=== PATIENT | female | born 1995 | race Caucasian/White ===

== ENCOUNTER 2017-06-22 08:58 | Inpatient (IN) | payer BC, OTHER ==
[2017-06-22] MEDS ORDERED: Carboprost Tromethamine 250 MCG/1 ML Amp IM PRN (09:11)
[2017-06-22] MEDS ORDERED: Lidocaine 1% 50 ML MDV INJECT PRN (09:11)
[2017-06-22] MEDS ORDERED: Sodium Chloride 0.9% 10 ML Syringe FLUSH PRN (09:11)
[2017-06-22] MEDS ORDERED: Butorphanol 1 MG/ML SDV IVPUSH PRN (09:11)
[2017-06-22] MEDS ORDERED: Misoprostol 200 MCG Tab PO PRN (09:11)
[2017-06-22] MEDS ORDERED: Sodium Chloride 0.9% 2.5 ML Syringe FLUSH PRN (09:11)
[2017-06-22] MEDS ORDERED: Methylergonovine 0.2 MG/1 ML Amp IM PRN ×2 (09:11→21:41)
[2017-06-22] MEDS ORDERED: Water For Irrigation,Sterile 1,000 ML Container IRR PRN (09:11)
[2017-06-22] MEDS ORDERED: Terbutaline 1 MG/ML SDV SUBCUT PRN (09:13)
[2017-06-22] MEDS ORDERED: Oxytocin/0.9 % Sodium Chloride 30 UNIT/500 ML BAG IV SCH ×2 (09:15)
[2017-06-22] MEDS: Lactated Ringers 1,000 ML IV SCH ×3 (09:24→14:36)
[2017-06-22] MEDS ORDERED: Ampicillin 1 GM in Sodium Chloride 0.9% 50 ML IV SCH (09:30)
[2017-06-22] MEDS ORDERED: Ampicillin 2 GM in Sodium Chloride 0.9% 100 ML IV ONE (09:30)
[2017-06-22] MEDS ORDERED: fentaNYL 100 MCG/2 ML SDV ONE (13:06)
[2017-06-22] MEDS ORDERED: Ropivacaine 100 ML ONE (13:06)
--- NOTE | 2017-06-22 13:35 | PCM.PREANE ---
Preanesthetic Assessment - Procedure Proposed Procedure: Labor Epidural - Anesthesia/Transfusion/Family Hx Anesthesia History: No Prior Anesthesia Family History of Anesthesia Reaction: No Transfusion History: No Prior Transfusion(s) - Review of Systems General: No Symptoms Pulmonary: No Symptoms Cardiovascular: No Symptoms Gastrointestinal: No Symptoms Neurological: No Symptoms Other: Reports: None - Physical Assessment NPO Status Date: 06/22/17 NPO Status Time: 13:33 (sips/chips) Height: 5 ft 6 in Weight: 215 lb ASA Class: 2 Mental Status: Alert & Oriented x3 Airway Class: Mallampati = 2 Dentition: Reports: Normal Dentition Thyro-Mental Finger Breadths: 3 Mouth Opening Finger Breadths: 3 ROM/Head Extension: Full Lungs: Clear to Auscultation, Normal Respiratory Effort Cardiovascular: Regular Rate, Regular Rhythm - Lab Values: Laboratory Last Values WBC 12.27 K/uL (4.0-11.0) H 06/22/17 09:24 RBC 4.44 M/uL (4.30-5.90) 06/22/17 09:24 Hgb 12.6 g/dL (12.0-16.0) 06/22/17 09:24 Hct 37.9 % (36.0-46.0) 06/22/17 09:24 MCV 85.4 fL (80.0-98.0) 06/22/17 09:24 MCH 28.4 pg (27.0-32.0) 06/22/17 09:24 MCHC 33.2 g/dL (31.0-37.0) 06/22/17 09:24 RDW Std Deviation 40.1 fl (28.0-62.0) 06/22/17 09:24 RDW Coeff of Kelly 13 % (11.0-15.0) 06/22/17 09:24 Plt Count 190 K/uL (150-400) 06/22/17 09:24 MPV 11.10 fL (7.40-12.00) 06/22/17 09:24 Nucleated RBC % 0.0 /100WBC 06/22/17 09:24 Nucleated RBCs # 0 K/uL 06/22/17 09:24 Blood Type O POSITIVE 06/22/17 09:30 Antibody Screen NEGATIVE 06/22/17 09:30 - Allergies Allergies/Adverse Reactions: Allergies Allergy/AdvReac Type Severity Reaction Status Date / Time No Known Allergies Allergy Verified 06/22/17 09:11 - Blood Blood Available: No Product(s) Available: None - Anesthesia Plan Free Text/Narrative:: Labor Epidural - Acknowledgements Anesthesia Type Planned: Epidural Pt an Appropriate Candidate for the Planned Anesthesia: Yes Alternatives and Risks of Anesthesia Discussed w Pt/Guardian: Yes Pt/Guardian Understands and Agrees with Anesthesia Plan: Yes PreAnesthesia Questionnaire Respiratory History: Reports: Asthma (pt states "slight") Gastrointestinal History: Reports: GERD (Significant Reflux with ), Other (See Below) (Hyperemesis thru 7 months - states she lost over 40 lbs) 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: , Spontaneous Psychiatric History: Reports: Anxiety, Bipolar, Depression - SUBSTANCE USE Smoking Status *Q: Former Smoker Second Hand Smoke Exposure: No - CURRENT (IN HOUSE) MEDS Current Meds: Current Medications Butorphanol Tartrate (Stadol) 1 mg IVPUSH Q1H PRN PRN Reason: Pain Carboprost Tromethamine (Hemabate Ds) 250 mcg IM ASDIRECTED PRN PRN Reason: Post Hemorrhage Lactated Ringer's (Ringers, Lactated) 1,000 mls @ 150 mls/hr IV ASDIRECTED SHARA Last Admin: 06/22/17 13:13 Dose: 999 mls/hr Oxytocin/Sodium Chloride (Oxytocin 30 Unit/500 Ml-Ns) 30 unit in 500 mls @ 999 mls/hr IV TITRATE SHARA Oxytocin/Sodium Chloride (Oxytocin 30 Unit/500 Ml-Ns) 30 unit in 500 mls @ 2 mls/hr IV TITRATE SHARA; 2 MUNITS/MIN PRN Reason: Protocol Last Titration: 06/22/17 12:57 Dose: 4 munits/min, 4 mls/hr Ampicillin Sodium 1 gm/ Sodium (Chloride) 50 mls @ 100 mls/hr IV Q4H SHARA Lidocaine HCl (Xylocaine 1%) 50 ml INJECT .ONCE PRN PRN Reason: Laceration repair Methylergonovine Maleate (Methergine) 0.2 mg IM ASDIRECTED PRN PRN Reason: Post Hemorrhage Misoprostol (Cytotec) 200 mcg PO .ONCE PRN PRN Reason: Post Hemorrhage Sodium Chloride (Saline Flush) 10 ml FLUSH ASDIRECTED PRN PRN Reason: Keep Vein Open Sodium Chloride (Saline Flush) 2.5 ml FLUSH ASDIRECTED PRN PRN Reason: Keep Vein Open Sterile Water (Sterile Water For Irrigation) 1,000 ml IRR ASDIRECTED PRN PRN Reason: delivery Terbutaline Sulfate (Brethine) 0.25 mg SUBCUT ASDIRECTED PRN PRN Reason: Tacysystole Discontinued Medications Fentanyl (Sublimaze) Confirm Administered Dose 100 mcg .ROUTE .STK-MED ONE Stop: 06/22/17 13:07 Ampicillin Sodium 1 gm/ Sodium (Chloride) 50 mls @ 100 mls/hr IV Q4H SHARA Ampicillin Sodium 2 gm/ Sodium (Chloride) 100 mls @ 200 mls/hr IV ONETIME ONE Stop: 06/22/17 09:59 Last Admin: 06/22/17 09:36 Dose: 200 mls/hr Ropivacaine (Naropin 0.2%) Confirm Administered Dose 100 mls @ as directed .ROUTE .STK-MED ONE Stop: 06/22/17 13:07
[2017-06-22] MEDS: Ampicillin 1 GM in Sodium Chloride 0.9% 50 ML IV SCH ×2 (13:40→17:57)
[2017-06-22] MEDS ORDERED: Oxytocin 10 Units/1 ML SDV ONE (21:32)
[2017-06-22] MEDS ORDERED: Ibuprofen 400 MG Tab PO PRN (21:41)
[2017-06-22] MEDS ORDERED: Docusate Sodium 100 MG Cap PO PRN (21:41)
[2017-06-22] MEDS ORDERED: Bisacodyl 10 MG Supp RECTAL PRN (21:41)
[2017-06-22] MEDS ORDERED: Benzocaine/Menthol 20%-0.5% Spray 78 GM Cannister TOP PRN (21:41)
[2017-06-22] MEDS ORDERED: Lanolin 100% Cream 7 GM Tube TOP PRN (21:41)
[2017-06-22] MEDS ORDERED: Witch Hazel Medicated Pads 40/Jar TOP PRN (21:41)
[2017-06-22] MEDS ORDERED: Acetaminophen 500 MG Tab ONE (21:44)
[2017-06-23] MEDS: Ibuprofen 800 MG Tab PO PRN ×3 (01:39→21:05)
[2017-06-23] MEDS: oxyCODONE 5 MG Tab PO PRN ×2 (03:52→10:25)
[2017-06-23] MEDS: Acetaminophen 500 MG Tab PO PRN ×2 (03:53→10:26)
--- NOTE | 2017-06-23 08:50 | PCM48HPAN ---
Post Anesthesia Note - EVALUATION WITHIN 48HRS OF ANESTHETIC Vital Signs in Normal Range: Yes Patient Participated in Evaluation: Yes Respiratory Function Stable: Yes Airway Patent: Yes Cardiovascular Function Stable: Yes Hydration Status Stable: Yes Pain Control Satisfactory: Yes Nausea and Vomiting Control Satisfactory: Yes Mental Status Recovered: Yes
--- NOTE | 2017-06-23 11:08 | PCM.PNPP ---
- General Info Date of Service: 06/23/17 Functional Status: Reports: Pain Controlled, Tolerating Diet, Ambulating, Urinating - Review of Systems General: Denies: Fever, Weakness Pulmonary: Denies: Shortness of Breath Cardiovascular: Denies: Chest Pain, Palpitations, Lightheadedness Gastrointestinal: Denies: Abdominal Pain, Nausea, Vomiting Genitourinary: Denies: Flank Pain Neurological: Reports: No Symptoms Psychiatric: Reports: No Symptoms - General Info Date of Service: 06/23/17 - Patient Data Vital Signs - Most Recent: Last Vital Signs Temp 36.2 C 06/23/17 08:00 Pulse 82 06/23/17 08:00 Resp 18 06/23/17 08:00 BP 113/77 06/23/17 08:00 Pulse Ox 98 06/23/17 08:00 Weight - Most Recent: 97.522 kg Lab Results - Last 24 Hours: Laboratory Results - last 24 hr 06/23/17 Range/Units 05:56 Hgb 10.6 L (12.0-16.0) g/dL Hct 31.6 L (36.0-46.0) % Med Orders - Current: Current Medications Acetaminophen (Tylenol Extra Strength) 500 mg PO Q4H PRN PRN Reason: Pain Last Admin: 06/23/17 10:26 Dose: 500 mg Acetaminophen (Tylenol Extra Strength) 1,000 mg PO Q4H PRN PRN Reason: Pain Benzocaine/Menthol (Dermoplast Pain Relief 20%-0.5% [place]) 0 gm TOP ASDIRECTED PRN PRN Reason: Perineal Comfort Measure Last Admin: 06/23/17 00:07 Dose: 1 applic Bisacodyl (Dulcolax) 10 mg RECTAL .ONCE PRN PRN Reason: Constipation Docusate Sodium (Colace) 100 mg PO BID PRN PRN Reason: Constipation Last Admin: 06/23/17 09:51 Dose: 100 mg Emollient Ointment (Lansinoh Hpa) 0 gm TOP ASDIRECTED PRN PRN Reason: Sore Nipples Last Admin: 06/23/17 00:07 Dose: 1 applic Ibuprofen (Motrin) 400 mg PO Q4H PRN PRN Reason: Pain Ibuprofen (Motrin) 800 mg PO Q6H PRN PRN Reason: Pain Last Admin: 06/23/17 08:09 Dose: 800 mg Measles/Mumps/Rubella Vaccine Live (M-M-R Ii Vaccine) 0.5 ml SUBCUT .ONCE ONE Stop: 06/24/17 05:01 Methylergonovine Maleate (Methergine) 0.2 mg IM .ONCE PRN PRN Reason: Excessive Vaginal Bleeding Oxycodone HCl (Oxycodone) 5 mg PO Q2H PRN PRN Reason: Pain Last Admin: 06/23/17 10:25 Dose: 5 mg Witch Malika (Tucks) 1 pad TOP ASDIRECTED PRN PRN Reason: comfort care Last Admin: 06/23/17 00:06 Dose: 1 applic Discontinued Medications Acetaminophen (Tylenol Extra Strength) Confirm Administered Dose 1,000 mg .ROUTE .STK-MED ONE Stop: 06/22/17 21:45 Last Admin: 06/22/17 21:49 Dose: 1,000 mg Butorphanol Tartrate (Stadol) 1 mg IVPUSH Q1H PRN PRN Reason: Pain Carboprost Tromethamine (Hemabate Ds) 250 mcg IM ASDIRECTED PRN PRN Reason: Post Hemorrhage Fentanyl (Sublimaze) Confirm Administered Dose 100 mcg .ROUTE .STK-MED ONE Stop: 06/22/17 13:07 Ampicillin Sodium 1 gm/ Sodium (Chloride) 50 mls @ 100 mls/hr IV Q4H SHARA Ampicillin Sodium 2 gm/ Sodium (Chloride) 100 mls @ 200 mls/hr IV ONETIME ONE Stop: 06/22/17 09:59 Last Admin: 06/22/17 09:36 Dose: 200 mls/hr Lactated Ringer's (Ringers, Lactated) 1,000 mls @ 150 mls/hr IV ASDIRECTED SHARA Last Admin: 06/22/17 14:36 Dose: 150 mls/hr Oxytocin/Sodium Chloride (Oxytocin 30 Unit/500 Ml-Ns) 30 unit in 500 mls @ 999 mls/hr IV TITRATE SHARA Oxytocin/Sodium Chloride (Oxytocin 30 Unit/500 Ml-Ns) 30 unit in 500 mls @ 2 mls/hr IV TITRATE SHARA; 2 MUNITS/MIN PRN Reason: Protocol Last Titration: 06/22/17 20:10 Dose: 6 munits/min, 6 mls/hr Ampicillin Sodium 1 gm/ Sodium (Chloride) 50 mls @ 100 mls/hr IV Q4H SHARA Last Admin: 06/22/17 17:57 Dose: 100 mls/hr Ropivacaine (Naropin 0.2%) Confirm Administered Dose 100 mls @ as directed .ROUTE .Dispop ONE Stop: 06/22/17 13:07 Lidocaine HCl (Xylocaine 1%) 50 ml INJECT .ONCE PRN PRN Reason: Laceration repair Methylergonovine Maleate (Methergine) 0.2 mg IM ASDIRECTED PRN PRN Reason: Post Hemorrhage Misoprostol (Cytotec) 200 mcg PO .ONCE PRN PRN Reason: Post Hemorrhage Oxytocin (Pitocin) Confirm Administered Dose 10 unit .ROUTE .Dispop ONE Stop: 06/22/17 21:33 Last Admin: 06/22/17 21:53 Dose: 10 unit Sodium Chloride (Saline Flush) 10 ml FLUSH ASDIRECTED PRN PRN Reason: Keep Vein Open Sodium Chloride (Saline Flush) 2.5 ml FLUSH ASDIRECTED PRN PRN Reason: Keep Vein Open Sterile Water (Sterile Water For Irrigation) 1,000 ml IRR ASDIRECTED PRN PRN Reason: delivery Last Admin: 06/22/17 21:52 Dose: 1,000 ml Terbutaline Sulfate (Brethine) 0.25 mg SUBCUT ASDIRECTED PRN PRN Reason: Tacysystole - Infant Interaction Disposition, : in Room with Family Interaction: Holding Infant Infant Feeding: Breastfed Infant; Nursed Well Support Person: - Recovery Exam Fundal Tone: Firm Fundal Level: 1 Fingerbreadths Below Umbilicus Fundal Placement: Midline Lochia Amount: Small Lochia Color: Rubra/Red Perineum Description: Intact, Minimal Bruising/Swelling Episiotomy/Laceration: None Bladder Status: Nonpalpable, Voiding Urinary Elimination: Voided - Exam General: Alert, Oriented Lungs: Normal Respiratory Effort Cardiovascular: Regular Rate, Regular Rhythm GI/Abdominal Exam: Normal Bowel Sounds, Soft, No Distention Extremities: Pedal Edema (trace). No: Unique's Sign Skin: Warm, Dry Psy/Mental Status: Alert, Normal Affect - Problem List & Annotations (1) Vaginal delivery SNOMED Code(s): 201939127 Code(s): O80 - ENCOUNTER FOR FULL-TERM UNCOMPLICATED DELIVERY Status: Acute Current Visit: Yes - Problem List Review Problem List Initiated/Reviewed/Updated: Yes - Assessment Assessment:: PPD 1 status post - Plan Plan:: Continue cares, stable overall.
[2017-06-24] MEDS: oxyCODONE 5 MG Tab PO PRN (01:06)
[2017-06-24] MEDS: Acetaminophen 500 MG Tab PO PRN ×2 (01:32→07:06)
[2017-06-24] MEDS ORDERED: Measles, Mumps & Rubella Vaccine 0.5 ML SDV SUBCUT ONE (05:00)
--- NOTE | 2017-06-24 09:01 | PCM.PNPP ---
- General Info Date of Service: 06/24/17 Functional Status: Reports: Pain Controlled, Tolerating Diet, Ambulating, Urinating - Review of Systems General: Denies: Fever, Weakness Pulmonary: Denies: Shortness of Breath Cardiovascular: Denies: Chest Pain, Palpitations, Lightheadedness Gastrointestinal: Denies: Abdominal Pain Genitourinary: Denies: Flank Pain Neurological: Reports: No Symptoms Psychiatric: Reports: No Symptoms - General Info Date of Service: 06/24/17 - Patient Data Vital Signs - Most Recent: Last Vital Signs Temp 36.7 C 06/23/17 21:50 Pulse 68 06/23/17 21:50 Resp 18 06/23/17 21:50 BP 117/59 L 06/23/17 21:50 Pulse Ox 97 06/23/17 21:50 Weight - Most Recent: 97.522 kg Med Orders - Current: Current Medications Acetaminophen (Tylenol Extra Strength) 500 mg PO Q4H PRN PRN Reason: Pain Last Admin: 06/23/17 10:26 Dose: 500 mg Acetaminophen (Tylenol Extra Strength) 1,000 mg PO Q4H PRN PRN Reason: Pain Last Admin: 06/24/17 07:06 Dose: 1,000 mg Benzocaine/Menthol (Dermoplast Pain Relief 20%-0.5% [place]) 0 gm TOP ASDIRECTED PRN PRN Reason: Perineal Comfort Measure Last Admin: 06/23/17 00:07 Dose: 1 applic Bisacodyl (Dulcolax) 10 mg RECTAL .ONCE PRN PRN Reason: Constipation Docusate Sodium (Colace) 100 mg PO BID PRN PRN Reason: Constipation Last Admin: 06/23/17 09:51 Dose: 100 mg Emollient Ointment (Lansinoh Hpa) 0 gm TOP ASDIRECTED PRN PRN Reason: Sore Nipples Last Admin: 06/23/17 00:07 Dose: 1 applic Ibuprofen (Motrin) 400 mg PO Q4H PRN PRN Reason: Pain Ibuprofen (Motrin) 800 mg PO Q6H PRN PRN Reason: Pain Last Admin: 06/23/17 21:05 Dose: 800 mg Methylergonovine Maleate (Methergine) 0.2 mg IM .ONCE PRN PRN Reason: Excessive Vaginal Bleeding Oxycodone HCl (Oxycodone) 5 mg PO Q2H PRN PRN Reason: Pain Last Admin: 06/24/17 01:06 Dose: 5 mg Witch Malika (Tucks) 1 pad TOP ASDIRECTED PRN PRN Reason: comfort care Last Admin: 06/23/17 00:06 Dose: 1 applic Discontinued Medications Acetaminophen (Tylenol Extra Strength) Confirm Administered Dose 1,000 mg .ROUTE .STK-MED ONE Stop: 06/22/17 21:45 Last Admin: 06/22/17 21:49 Dose: 1,000 mg Butorphanol Tartrate (Stadol) 1 mg IVPUSH Q1H PRN PRN Reason: Pain Carboprost Tromethamine (Hemabate Ds) 250 mcg IM ASDIRECTED PRN PRN Reason: Post Hemorrhage Fentanyl (Sublimaze) Confirm Administered Dose 100 mcg .ROUTE .STK-MED ONE Stop: 06/22/17 13:07 Ampicillin Sodium 1 gm/ Sodium (Chloride) 50 mls @ 100 mls/hr IV Q4H SHARA Ampicillin Sodium 2 gm/ Sodium (Chloride) 100 mls @ 200 mls/hr IV ONETIME ONE Stop: 06/22/17 09:59 Last Admin: 06/22/17 09:36 Dose: 200 mls/hr Lactated Ringer's (Ringers, Lactated) 1,000 mls @ 150 mls/hr IV ASDIRECTED SHARA Last Admin: 06/22/17 14:36 Dose: 150 mls/hr Oxytocin/Sodium Chloride (Oxytocin 30 Unit/500 Ml-Ns) 30 unit in 500 mls @ 999 mls/hr IV TITRATE SHARA Oxytocin/Sodium Chloride (Oxytocin 30 Unit/500 Ml-Ns) 30 unit in 500 mls @ 2 mls/hr IV TITRATE SHARA; 2 MUNITS/MIN PRN Reason: Protocol Last Titration: 06/22/17 20:10 Dose: 6 munits/min, 6 mls/hr Ampicillin Sodium 1 gm/ Sodium (Chloride) 50 mls @ 100 mls/hr IV Q4H SHARA Last Admin: 06/22/17 17:57 Dose: 100 mls/hr Ropivacaine (Naropin 0.2%) Confirm Administered Dose 100 mls @ as directed .ROUTE .STK-MED ONE Stop: 06/22/17 13:07 Lidocaine HCl (Xylocaine 1%) 50 ml INJECT .ONCE PRN PRN Reason: Laceration repair Measles/Mumps/Rubella Vaccine Live (M-M-R Ii Vaccine) 0.5 ml SUBCUT .ONCE ONE Stop: 06/24/17 05:01 Methylergonovine Maleate (Methergine) 0.2 mg IM ASDIRECTED PRN PRN Reason: Post Hemorrhage Misoprostol (Cytotec) 200 mcg PO .ONCE PRN PRN Reason: Post Hemorrhage Oxytocin (Pitocin) Confirm Administered Dose 10 unit .ROUTE .STK-MED ONE Stop: 06/22/17 21:33 Last Admin: 06/22/17 21:53 Dose: 10 unit Sodium Chloride (Saline Flush) 10 ml FLUSH ASDIRECTED PRN PRN Reason: Keep Vein Open Sodium Chloride (Saline Flush) 2.5 ml FLUSH ASDIRECTED PRN PRN Reason: Keep Vein Open Sterile Water (Sterile Water For Irrigation) 1,000 ml IRR ASDIRECTED PRN PRN Reason: delivery Last Admin: 06/22/17 21:52 Dose: 1,000 ml Terbutaline Sulfate (Brethine) 0.25 mg SUBCUT ASDIRECTED PRN PRN Reason: Tacysystole - Interaction Disposition, : in Room with Family Infant Interaction: Holding Infant Feeding: Breastfed ; Nursed Well Support Person: - Recovery Exam Fundal Tone: Firm Fundal Level: 1 Fingerbreadths Below Umbilicus Fundal Placement: Midline Lochia Amount: Scant Lochia Color: Rubra/Red Perineum Description: Intact, Minimal Bruising/Swelling Episiotomy/Laceration: None Bladder Status: Voiding Urinary Elimination: Voided - Exam General: Alert, Oriented Lungs: Normal Respiratory Effort Cardiovascular: Regular Rate, Regular Rhythm GI/Abdominal Exam: Normal Bowel Sounds, Soft, No Distention Extremities: No: Unique's Sign Skin: Warm, Dry, Intact Psy/Mental Status: Alert, Normal Affect - Problem List & Annotations (1) Vaginal delivery SNOMED Code(s): 817585394 Code(s): O80 - ENCOUNTER FOR FULL-TERM UNCOMPLICATED DELIVERY Status: Acute Current Visit: Yes - Problem List Review Problem List Initiated/Reviewed/Updated: Yes - My Orders Last 24 Hours: My Active Orders 06/24/17 08:59 Ready for Discharge [RC] PER UNIT ROUTINE - Assessment Assessment:: PPD 2 status post - Plan Plan:: patient is ready to go home. Discharge instructions reviewed. Follow up at [facility] 6 weeks. Infection and bleeding warnings reviewed.
--- NOTE | 2017-06-24 12:21 | OR ---
SURGEON: Nancy Dorsey M.D. DATE OF PROCEDURE: 06/22/2017 PREOPERATIVE DIAGNOSES: A 41 and 2/7 weeks' intrauterine , post-dates induction of labor, group B strep positive. POSTOPERATIVE DIAGNOSES: A 41 and 2/7 weeks' intrauterine , post-dates induction of labor, group B strep positive. PROCEDURE: Pitocin induction of labor, group B strep prophylaxis, term spontaneous vaginal delivery. ANESTHESIA: Epidural. ESTIMATED BLOOD LOSS: Less than 300 mL. FINDINGS: Live born male, score 8 and 9. Weighing 4170 grams. Placenta was delivered spontaneously, Schultze, intact with 3 vessels. Upon inspection the pelvis and perineum, there were no periurethral, vaginal sidewall, cervical, rectal, or perineal lacerations. COMPLICATIONS: None known. DISPOSITION: Mother and baby are in LDRP in good condition. BRIEF HISTORY: This is a 21-year-old female, she is G2, P0-0-1-0, who presents at 41 and 2/7 weeks' gestation for induction of labor. She was initially 4 cm dilated. She received ampicillin for group B Strep prophylaxis. After her second dose of ampicillin, she had artificial rupture of membranes. At that time, she was 7 cm dilated. She had category 1 heart tones with episodes of category 2 throughout labor. She progressed to complete. DESCRIPTION OF PROCEDURE: With the patient in dorsolithotomy position, under adequate epidural analgesia, the patient pushed over a 1-1/2 hour time period to a 5+ station, at which time the head was delivered spontaneously and atraumatically over the perineum with support with subsequent delivery of the 's shoulders and then body without any difficulty. The was bulb suctioned by nose and mouth, and the infant was handed to the mother in the presence of the nurse attending delivery. The infant was a liveborn male, score 8 and 9, weighing 4170 grams. After the cord had ceased to pulsate, it was doubly clamped and cut. Cord blood was collected for cord ABGs, as well as routine cord blood sampling. Pitocin was not initiated by IV because the IV had come out, but was given 10 units IM, and the placenta had delivered spontaneously, Schultze, intact with 3 vessels. Upon inspection of the pelvis and perineum, there were no periurethral, vaginal sidewall, cervical, rectal, or perineal lacerations. EBL was less than 300 mL. There were no complications. Mother and baby are in LDRP in good condition. HUMBERTO DELATORRE /[id number]
== END 2017-06-24 11:15 | disposition home or self-care (01) | DRG 560 ==
LOC: MW.OBCHECK 08:58 → MW.OB 08:59 → MW.OBCHECK 09:11 → MW.OB 09:26 → OBSVTOIN 21:28 → MW.OB 06-23 01:35
PROVIDERS: ADMIT Obstetrics & Gynecology; ATTEND Obstetrics & Gynecology
PROC: 10E0XZZ Delivery of Products of Conception, External Approach (ICD-10-PCS; principal; 2017-06-22)
PROC: 3E033VJ Introduction of Other Hormone into Peripheral Vein, Percutaneous Approach (ICD-10-PCS; 2017-06-22)
DX: O48.0 Post-term pregnancy (principal); O99.824 Streptococcus B carrier state complicating childbirth; Z3A.41 41 weeks gestation of pregnancy; Z37.0 Single live birth
CPT/HCPCS: 36415; 51702; 59025; 59409; 85014; 85018; 85027; 86850; 86900; 86901; 90471; 90707; A9270-GY; J0290; J2590; J7030; J7050; J7120

== ENCOUNTER 2021-05-24 11:07 | Emergency (ER) | payer BC ==
[2021-05-24] MEDS ORDERED: Sodium Chloride 0.9% 2.5 ML Syringe FLUSH PRN (11:19)
[2021-05-24] MEDS ORDERED: Sodium Chloride 0.9% 10 ML Syringe FLUSH PRN (11:19)
[2021-05-24] MEDS ORDERED: Ketorolac 30 MG/ML SDV IVPUSH ONE (11:20)
--- NOTE | 2021-05-24 11:24 | EDM.PDOC ---
ED HPI GENERAL MEDICAL PROBLEM - General Chief Complaint: Respiratory Problem Stated Complaint: SORE THROAT Time Seen by Provider: 05/24/21 11:10 - History of Present Illness INITIAL COMMENTS - FREE TEXT/NARRATIVE: Previously well 25-year-old female presenting with 1 week of gradually worsening general symptoms. Patient symptoms started approximately 7 days ago with mild cough. She was seen at the clinic as her son had similar symptoms they both tested negative for Covid at that time. Since then patient has had gradually worsening diffuse myalgias headache cough chest pain with coughing fatigue and malaise. She did have one episode of emesis yesterday but emesis and diarrhea have not been a large part of her illness. She was seen at the walk-in clinic again 2 days ago she was diagnosed with a right-sided otitis and started on antibiotics for that. She presents today because of continuing to feel worse and worse. No clear exacerbating or alleviating factors radiation or other associated symptoms. Generalized Pain Score (Numeric/FACES): 9 - Related Data Allergies Allergy/AdvReac Type Severity Reaction Status Date / Time No Known Allergies Allergy Verified 05/24/21 11:12 Home Meds: Home Meds . 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 Eyes: No vision problems. ENT: + sore throat. Neck: No neck stiffness. Respiratory: Per HPI Cardiac: Per HPI Gastrointestinal: Per HPI Urinary: No dysuria. Musculoskeletal: Per HPI Neurologic: No headache. ED EXAM, GENERAL - Physical Exam Exam: See Below Free Text/Narrative:: General Appearance: No acute distress, appears uncomfortable Skin: No rash HEENT: Normocephalic/atraumatic, sclera anicteric, mucous membranes moist, right TM with clear serous effusion no erythema Neck: Normal range of motion Chest and Lungs: Bilateral breath sounds, clear to auscultation Cardiovascular: Regular rate and rhythm Abdomen: Soft, non-tender Musculoskeletal: No edema or tenderness Neurologic: Awake, alert, no obvious deficits, moving all extremities Psychiatric: Appropriate, cooperative Course - Vital Signs Last Recorded V/S: Last Vital Signs Temp 96.5 F L 05/24/21 11:12 Pulse 88 05/24/21 12:10 Resp 20 05/24/21 11:12 BP 112/76 05/24/21 12:10 Pulse Ox 98 05/24/21 11:12 - Orders/Labs/Meds Orders: Active Orders 24 hr Category Date Time Status COVID-19/FLU A+B [MOLEC] Stat Lab 05/24/21 11:15 Results Lactated Ringers [Ringers, Lactated] 1,000 ml Med 05/24/21 11:30 Active IV ASDIRECTED Sodium Chloride 0.9% [Saline Flush] Med 05/24/21 11:19 Active 10 ml FLUSH ASDIRECTED PRN Sodium Chloride 0.9% [Saline Flush] Med 05/24/21 11:19 Active 2.5 ml FLUSH ASDIRECTED PRN Saline Lock Insert [OM.PC] Stat Oth 05/24/21 11:20 Ordered Medication Orders Lactated Ringer's (Ringers, Lactated) 1,000 mls @ 999 mls/hr IV ASDIRECTED SHARA Last Admin: 05/24/21 11:23 Dose: 999 mls/hr Documented by: CRISTINA Sodium Chloride (Sodium Chloride 0.9% 10 Ml Syringe) 10 ml FLUSH ASDIRECTED PRN PRN Reason: Keep Vein Open Last Admin: 05/24/21 11:22 Dose: 10 ml Documented by: CRISTINA Sodium Chloride (Sodium Chloride 0.9% 2.5 Ml Syringe) 2.5 ml FLUSH ASDIRECTED PRN PRN Reason: Keep Vein Open Last Admin: 05/24/21 11:22 Dose: 2.5 ml Documented by: CRISTINA Labs: Laboratory Tests 05/24/21 05/24/21 05/24/21 Range/Units 11:15 11:20 11:20 WBC 3.04 L (4.0-11.0) K/uL RBC 5.11 (4.30-5.90) M/uL Hgb 14.2 (12.0-16.0) g/dL Hct 43.1 (36.0-46.0) % MCV 84.3 (80.0-98.0) fL MCH 27.8 (27.0-32.0) pg MCHC 32.9 (31.0-37.0) g/dL RDW Std Deviation 38.6 (28.0-62.0) fl RDW Coeff of Kelly 13 (11.0-15.0) % Plt Count 220 (150-400) K/uL MPV 10.30 (7.40-12.00) fL Neut % (Auto) 55.9 (48.0-80.0) % Lymph % (Auto) 31.3 (16.0-40.0) % Mower % (Auto) 12.2 (0.0-15.0) % Eos % (Auto) 0.3 (0.0-7.0) % Baso % (Auto) 0.3 (0.0-1.5) % Neut # (Auto) 1.7 (1.4-5.7) K/uL Lymph # (Auto) 1.0 (0.6-2.4) K/uL Mower # (Auto) 0.4 (0.0-0.8) K/uL Eos # (Auto) 0.0 (0.0-0.7) K/uL Baso # (Auto) 0.0 (0.0-0.1) K/uL Nucleated RBC % 0.0 /100WBC Nucleated RBCs # 0 K/uL Sodium 137 (136-145) mmol/L Potassium 3.9 (3.5-5.1) mmol/L Chloride 102 (98-107) mmol/L Carbon Dioxide 24.9 (21.0-32.0) mmol/L BUN 11 (7.0-18.0) mg/dL Creatinine 0.7 (0.6-1.0) mg/dL Est Cr Clr Drug Dosing 111.51 mL/min Estimated GFR (MDRD) > 60.0 ml/min Glucose 91 (74-106) mg/dL Calcium 8.4 L (8.5-10.1) mg/dL SARS-CoV-2 RNA (SHANIA) POSITIVE H (NEGATIVE) Meds: Medications Generic Name Dose Route Start Last Admin Trade Name Freq PRN Reason Stop Dose Admin Lactated Ringer's 1,000 mls @ 999 mls/hr 05/24/21 11:30 05/24/21 11:23 Ringers, Lactated IV 999 mls/hr ASDIRECTED SHARA Administration Sodium Chloride 10 ml 05/24/21 11:19 05/24/21 11:22 Sodium Chloride 0.9% 10 Ml Syringe FLUSH 10 ml ASDIRECTED PRN Administration Keep Vein Open Sodium Chloride 2.5 ml 05/24/21 11:19 05/24/21 11:22 Sodium Chloride 0.9% 2.5 Ml Syringe FLUSH 2.5 ml ASDIRECTED PRN Administration Keep Vein Open Discontinued Medications Generic Name Dose Route Start Last Admin Trade Name Freq PRN Reason Stop Dose Admin Ketorolac Tromethamine 15 mg 05/24/21 11:20 05/24/21 11:26 Ketorolac 30 Mg/Ml Sdv IVPUSH 05/24/21 11:21 15 mg ONETIME ONE Administration Departure - Departure Time of Disposition: 12:24 Disposition: Home, Self-Care 01 Condition: Good Clinical Impression: COVID-19 - Discharge Information *PRESCRIPTION DRUG MONITORING PROGRAM REVIEWED*: Not Applicable *COPY OF PRESCRIPTION DRUG MONITORING REPORT IN PATIENT KWESI: Not Applicable Instructions: 10 Things You Can Do to Manage Your COVID-19 Symptoms at Home - [facility] [place] (12/20/2020) Referrals: PCP,None [Primary Care Provider] - Forms: ED Department Discharge Additional Instructions: Your labs today show that you do have COVID-19. It is important that you quarantine at home. The [facility] department will be in contact with you to release you from quarantine. This will be in approximately 10 days. Do your best to drink plenty of fluids. If you feel like you develop worsening shortness of breath please return to the ER. If you develop any other new symptoms that concern you please call your doctor or return to the ER. As we discussed you do need criteria for the monoclonal antibody infusion called Regeneron. There is good evidence that this would lower your risk of becoming seriously ill from COVID-19. If this is something that you decide you want to pursue it must be done within 10 days of symptom onset. My recommendation is that if you decide you want to move ahead with it that you be seen at the [facility] walk-in clinic first thing Wednesday morning and they can arrange referral to the infusion center for the medication. The following information is given to patients seen in the emergency department who are being discharged to home. This information is to outline your options for follow-up care. We provide all patients seen in our emergency department with a follow-up referral. The need for follow-up, as well as the timing and circumstances, are variable depending upon the specifics of your emergency department visit. If you don't have a primary care physician on staff, we will provide you with a referral. We always advise you to contact your personal physician following an emergency department visit to inform them of the circumstance of the visit and for follow-up with them and/or the need for any referrals to a consulting specialist. The emergency department will also refer you to a specialist when appropriate. This referral assures that you have the opportunity for follow-up care with a specialist. All of these measure are taken in an effort to provide you with optimal care, which includes your follow-up. Under all circumstances we always encourage you to contact your private physician who remains a resource for coordinating your care. When calling for follow-up care, please make the office aware that this follow-up is from your recent emergency room visit. If for any reason you are refused follow-up, please contact the [facility] Emergency Department at and asked to speak to the emergency department charge nurse. Sepsis Event Note (ED) - Evaluation Sepsis Screening Result: No Definite Risk - Focused Exam Vital Signs: Vital Signs Temp Pulse Resp BP Pulse Ox 05/24/21 12:10 88 112/76 05/24/21 11:12 96.5 F L 95 20 142/109 H 98 - My Orders Last 24 Hours: My Active Orders 05/24/21 11:15 COVID-19/FLU A+B [MOLEC] Stat 05/24/21 11:19 Sodium Chloride 0.9% [Saline Flush] 10 ml FLUSH ASDIRECTED PRN Sodium Chloride 0.9% [Saline Flush] 2.5 ml FLUSH ASDIRECTED PRN 05/24/21 11:20 Saline Lock Insert [OM.PC] Stat 05/24/21 11:30 Lactated Ringers [Ringers, Lactated] 1,000 ml IV ASDIRECTED - Assessment/Plan Last 24 Hours: My Active Orders 05/24/21 11:15 COVID-19/FLU A+B [MOLEC] Stat 05/24/21 11:19 Sodium Chloride 0.9% [Saline Flush] 10 ml FLUSH ASDIRECTED PRN Sodium Chloride 0.9% [Saline Flush] 2.5 ml FLUSH ASDIRECTED PRN 05/24/21 11:20 Saline Lock Insert [OM.PC] Stat 05/24/21 11:30 Lactated Ringers [Ringers, Lactated] 1,000 ml IV ASDIRECTED Assessment:: 25-year-old female presented with signs and symptoms that are most consistent with viral syndrome. Covid and influenza are considerations bacterial pneumonia consideration as well and chest x-ray and basic blood work pending. Patient clinically dehydrated and given his IV fluid will be started patient will be given a dose of Toradol as well and will reassess. Patient is nontoxic in appearance and if work-up is reassuring will likely be safe for discharge. Patient's labs show a mild leukopenia she is positive for COVID-19 which is consistent with her presentation. Her chest x-ray is clear. Patient does meet criteria for Regeneron with her BMI of 36. However she is otherwise very well. Patient is unsure about Regeneron and would like to speak to her prior to deciding for certain. We discussed the importance of timing of her decision and she expressed understanding of this. Patient is felt stable for discharge.
[2021-05-24] MEDS ORDERED: Lactated Ringers 1,000 ML IV SCH (11:30)
[2021-05-24 11:49] LABS: BLOOD UREA NITROGEN,BUN 11 mg/dL (7.0-18.0); CARBON DIOXIDE,CO2 24.9 mmol/L (21.0-32.0); CHLORIDE,CL 102 mmol/L (98-107); GLUCOSE RANDOM 91 mg/dL (74-106); POTASSIUM,K 3.9 mmol/L (3.5-5.1); SODIUM,NA 137 mmol/L (136-145)
[2021-05-24 12:05] LABS: CORONAVIRUS COVID-19 NAA POSITIVE (NEGATIVE)
--- NOTE | 2021-05-24 12:16 | CR ---
INDICATION: Cough and dyspnea COMPARISON: None TECHNIQUE: PA and lateral views of the chest were acquired FINDINGS: TUBES AND LINES: None. HEART AND MEDIASTINUM: The heart size is normal. The mediastinal contour appears normal for patient age. LUNGS AND PLEURAL SPACES: The lungs appear normal.The pleural spaces are unremarkable. OSSEOUS STRUCTURES: Age-appropriate appearance. No acute focal finding. IMPRESSION: No evidence of active pulmonary disease. Dictated by Weston Butler MD @ 05/24/2021 12:15:59 PM (Electronically Signed)
[2021-05-24 12:40] LABS: INFLUENZA A NAA NEGATIVE (NEGATIVE); INFLUENZA B NAA NEGATIVE (NEGATIVE)
== END 2021-05-24 13:14 | disposition home or self-care (01) ==
LOC: MW.ED 11:07
DX: U07.1 COVID-19 (principal); K21.9 Gastro-esophageal reflux disease without esophagitis
CPT/HCPCS: 0240U; 36415; 71046; 80048; 85025; 96374; 99284; J1885; J7120

== ENCOUNTER 2022-05-10 07:30 | Emergency (ER) | payer BC ==
[2022-05-10] MEDS ORDERED: Acetaminophen 325 MG Tab PO ONE (08:35)
[2022-05-10] MEDS ORDERED: Ibuprofen 400 MG Tab PO ONE (08:35)
[2022-05-10 08:39] LABS: CORONAVIRUS COVID-19 NAA POSITIVE (NEGATIVE); INFLUENZA A NAA NEGATIVE (NEGATIVE); INFLUENZA B NAA NEGATIVE (NEGATIVE); RESPIRATORY SYNCYTIAL VIR NAA NEGATIVE (NEGATIVE)
== END 2022-05-10 09:09 | disposition home or self-care (01) ==
LOC: MW.ED 07:30
DX: U07.1 COVID-19 (principal)
CPT/HCPCS: 0241U; 99283; A9270

== ENCOUNTER 2023-03-19 05:47 | Emergency (ER) | payer BC ==
[2023-03-19] MEDS ORDERED: Sodium Chloride 0.9% 2.5 ML Syringe FLUSH PRN (06:08)
[2023-03-19] MEDS ORDERED: Ondansetron 4 MG/2 ML SDV IVPUSH ONE (06:08)
[2023-03-19] MEDS ORDERED: Sodium Chloride 0.9% 10 ML Syringe FLUSH PRN (06:08)
[2023-03-19] MEDS ORDERED: Ketorolac 30 MG/ML SDV IVPUSH ONE (06:08)
[2023-03-19 06:15] LABS: BASOPHILS ABSOLUTE AUTO 0.03 K/uL (0.00-0.20); BASOPHILS PERCENT AUTO 0.4 % (0.0-1.0); EOSINOPHILS ABSOLUTE AUTO 0.14 K/uL (0.00-0.45); EOSINOPHILS PERCENT AUTO 2.1 % (0.0-6.0); HEMATOCRIT 40.7 % (37.0-47.0); HEMOGLOBIN 13.4 g/dL (12.0-16.0); IMMATURE GRAN ABSOLUTE AUTO 0.02 K/uL (0.00-0.05); IMMATURE GRAN PERCENT AUTO 0.3 % (0.0-0.4); LYMPHOCYTES ABSOLUTE AUTO 2.13 K/uL (1.00-4.80); LYMPHOCYTES PERCENT AUTO 31.6 % (24.0-44.0); MEAN CORPUSCULAR HEMOGLOBIN 27.5 pg (28.0-32.0); MEAN CORPUSCULAR HGB CONC 32.9 g/dL (32.0-36.0); MEAN CORPUSCULAR VOLUME 83.4 fL (83.0-99.0); MEAN PLATELET VOLUME 10.2 fL (9.4-12.3); MONOCYTES ABSOLUTE AUTO 0.56 K/uL (0.00-0.80); MONOCYTES PERCENT AUTO 8.3 % (0.0-8.0); NEUTROPHILS ABSOLUTE AUTO 3.85 K/uL (1.80-7.70); NEUTROPHILS PERCENT AUTO 57.3 % (41.0-71.0); PLATELET COUNT,PLT 297 K/uL (150-400); RED BLOOD CELL COUNT 4.88 M/uL (4.10-5.30); WHITE BLOOD CELL COUNT,WBC 6.73 K/uL (3.9-11.3)
[2023-03-19 06:30] LABS: A/G RATIO 1.2 (0.9-1.6); ALBUMIN 3.8 g/dL (3.4-5.0); BILIRUBIN TOTAL 0.3 mg/dL (0.2-1.0); CALCIUM 8.5 mg/dL (8.5-10.1); CARBON DIOXIDE,CO2 25.4 mmol/L (21.0-32.0); EST CRCL DRUG DOSING (CG) 76.71 mL/min; POTASSIUM,K 3.7 mmol/L (3.5-5.1); PROTEIN TOTAL,TP 7.1 g/dL (6.4-8.2)
[2023-03-19] MEDS ORDERED: HYDROmorphone 1 MG/ML Syringe IVPUSH ONE ×2 (06:40→07:46)
[2023-03-19 06:58] LABS: BILIRUBIN,URINE NEGATIVE (NEGATIVE); COLOR,URINE YELLOW; GLUCOSE,URINE NEGATIVE (NEGATIVE); KETONES,URINE NEGATIVE (NEGATIVE); LEUKOCYTE ESTERASE,URINE NEGATIVE (NEGATIVE); NITRITE,URINE NEGATIVE (NEGATIVE); OCCULT BLOOD,URINE LARGE (NEGATIVE); PROTEIN,URINE NEGATIVE (NEGATIVE); UROBILINOGEN,URINE 0.2 EU/dL (<2.0)
[2023-03-19 07:00] LABS: APPEARANCE,URINE HAZY
[2023-03-19 07:05] LABS: BACTERIA,URINE FEW (NEGATIVE); EPITHELIAL CELLS,URINE RARE (NONE-FEW)
[2023-03-19 07:06] LABS: MUCUS,URINE LIGHT (NONE-MOD)
== END 2023-03-19 08:51 | disposition home or self-care (01) ==
LOC: MW.ED 05:47
DX: N20.0 Calculus of kidney (principal); J45.909 Unspecified asthma, uncomplicated; K21.9 Gastro-esophageal reflux disease without esophagitis
CPT/HCPCS: 36415; 74176; 80053; 81001; 81025; 83690; 85025; 96374; 96375; 96376; 99284; J1170; J1885; J2405; J3490